=== PATIENT | male | born 1940 | race Caucasian/White ===

== ENCOUNTER 2020-08-23 15:10 | Outpatient (CLI) | payer MEDICARE | END 2020-08-23 15:11 | disposition home or self-care (01) | LOC: CSHRAD 15:10 | PROVIDERS: ATTEND Family Medicine Sports Medicine | DX: R55 Syncope and collapse (principal); S22.41XA Multiple fractures of ribs, right side, initial encounter for closed fracture ==

== ENCOUNTER 2021-06-10 16:14 | Emergency (ER) | payer MEDICARE | END 2021-06-10 17:57 | disposition home or self-care (01) | LOC: CSHERS 16:14 | DX: S00.81XA Abrasion of other part of head, initial encounter (principal); I10 Essential (primary) hypertension; E78.5 Hyperlipidemia, unspecified; K21.9 Gastro-esophageal reflux disease without esophagitis; I25.10 Atherosclerotic heart disease of native coronary artery without angina pectoris; E05.90 Thyrotoxicosis, unspecified without thyrotoxic crisis or storm; Z87.891 Personal history of nicotine dependence; W18.09XA Striking against other object with subsequent fall, initial encounter | CPT/HCPCS: 70450 ==

== ENCOUNTER 2022-03-10 12:22 | Outpatient (CLI) | payer MEDICARE | END 2022-03-10 12:23 | disposition home or self-care (01) | LOC: CSHMRI 12:22 | PROVIDERS: ATTEND Electrodiagnostic Medicine | DX: M21.372 Foot drop, left foot (principal) | CPT/HCPCS: 70551 ==

== ENCOUNTER 2025-02-10 14:07 | Inpatient (IN) | payer MEDICARE, OTHER ==
[~2025-02-10 14:07] MED LIST: Iopamidol 370 76% 100 ML VIAL ONE
[2025-02-10] MEDS ORDERED: Magnesium 2 GM/50 ML BAG (IN WATER) ONE (15:19)
[2025-02-10 15:45] LABS: #Basophils 0.05 10x3/uL (0.0-0.2); #Eosinophils Less than 0.03 10x3/uL (0.0-0.5); #Monocytes 1.50 10x3/uL (0.0-1.1); #Neutrophils 9.09 10x3/uL (1.5-8.4); %Basophils 0.4 % (0.0-2.0); %Eosinophils 0.2 % (0.0-6.0); %Lymphocytes 8.0 % (18.0-47.0); %Monocytes 12.9 % (0.0-10.0); %Neutrophils 78.2 % (40.0-75.0); Hematocrit 36.5 % (38.8-50.0); Hemoglobin 11.9 g/dL (13.5-17.5); Mean Corpuscular Hemoglobin 30.3 pg (27.0-33.0); Mean Corpuscular Volume 92.9 fL (81.2-95.1); Platelet Count 164 10x3/uL (150-450); Red Blood Cell (RBC) Count 3.93 10x6/uL (4.32-5.72); White Blood Cell (WBC) Count 11.63 10x3/uL (3.5-10.5)
[2025-02-10 16:07] LABS: ALT (SGPT) 24 U/L (Less than 45); AST (SGOT) 36 U/L (11-34); Albumin 4.0 g/dL (3.1-4.5); Alkaline Phosphatase 66 U/L (40-110); Anion Gap 17 mmol/L (10-20); BUN (Urea Nitrogen) 14 mg/dL (8.4-25.7); Bilirubin, Total 0.5 mg/dL (0.3-1.2); Calc. Creatinine Clearance 0 mL/min (70-130); Calcium 8.6 mg/dL (7.8-10.44); Carbon Dioxide 20 mmol/L (23-31); Chloride 105 mmol/L (98-107); Globulin 3.0 g/dL (2.4-3.5); Glucose 114 mg/dL (83-110); Potassium 4.0 mmol/L (3.5-5.1); Sodium 138 mmol/L (136-145)
[2025-02-10 16:17] LABS: Troponin I 0.018 ng/mL (< 0.028)
[2025-02-10] MEDS ORDERED: Azithromycin 250 MG TAB ONE (16:32)
[2025-02-10] MEDS ORDERED: cefTRIAXone (ROCEPHIN) 2 GM VIAL ONE (16:32)
[2025-02-10 17:06] LABS: Glucose, Urine (Dipstick) Normal (Negative); Leukocyte Negative (Negative); Protein, Urine (Dipstick) 30 mg/dl (Neg-Trace); Specific Gravity, Urine 1.025 (1.005-1.030)
[2025-02-10 17:23] LABS: CAUTI Indications for Culture Pelvic or flank pain; RBC/HPF 0-3 HPF (0-3); WBC/HPF 0-3 HPF (0-3)
[2025-02-10 17:24] LABS: Bacteria/HPF 2+ HPF (None Seen); Mucous/LPF 4+ LPF (<2+)
[2025-02-10 17:26] LABS: Urine Culture Reflex No No
[2025-02-10] MEDS ORDERED: Ipratropium Bromide 2.5 ml Neb ONE (17:33)
[2025-02-10] MEDS ORDERED: Acetaminophen 325 MG TAB PO PRN (19:45)
[2025-02-10] MEDS ORDERED: Guaifenesin DM 100-10/5 ML UDCUP PO PRN (19:48)
[2025-02-10] MEDS ORDERED: Metoclopramide HCl 10 MG (2 mL) VIAL ONE (20:01)
[2025-02-10] MEDS ORDERED: Acetaminophen 500 MG TAB ONE (20:02)
[2025-02-10 20:17] LABS: Magnesium 1.8 mg/dL (1.6-2.6)
[2025-02-10] MEDS ORDERED: Primidone 50 MG TAB PO SCH (21:00)
[2025-02-10] MEDS ORDERED: Aspirin 81 mg Enteric Coated Tablet PO SCH (21:00)
[2025-02-10 22:23] VITALS: BMI 24.3
[2025-02-10] MEDS: Primidone 50 MG TAB PO SCH (23:17)
[2025-02-10] MEDS: Mupirocin 1 GM TUBE TP SCH (23:18)
[2025-02-11 04:13] LABS: #Basophils Less than 0.03 10x3/uL (0.0-0.2); #Eosinophils 0.13 10x3/uL (0.0-0.5); #Monocytes 1.27 10x3/uL (0.0-1.1); #Neutrophils 6.50 10x3/uL (1.5-8.4); %Basophils 0.1 % (0.0-2.0); %Eosinophils 1.5 % (0.0-6.0); %Lymphocytes 9.0 % (18.0-47.0); %Monocytes 14.6 % (0.0-10.0); %Neutrophils 74.7 % (40.0-75.0); Hematocrit 33.1 % (38.8-50.0); Hemoglobin 11.1 g/dL (13.5-17.5); Mean Corpuscular Hemoglobin 31.0 pg (27.0-33.0); Mean Corpuscular Volume 92.5 fL (81.2-95.1); Platelet Count 149 10x3/uL (150-450); Red Blood Cell (RBC) Count 3.58 10x6/uL (4.32-5.72); White Blood Cell (WBC) Count 8.70 10x3/uL (3.5-10.5)
[2025-02-11 04:17] LABS: Anion Gap 11 mmol/L (10-20); BUN (Urea Nitrogen) 16 mg/dL (8.4-25.7); Calc. Creatinine Clearance 78 mL/min (70-130); Calcium 8.8 mg/dL (7.8-10.44); Carbon Dioxide 23 mmol/L (23-31); Chloride 106 mmol/L (98-107); Glucose 147 mg/dL (83-110); Potassium 4.2 mmol/L (3.5-5.1); Sodium 136 mmol/L (136-145)
[2025-02-11 04:33] LABS: Legionella Urinary Ag Negative (Negative); Strep pneumo Urine Ag NEGATIVE (NEGATIVE)
[2025-02-11] MEDS: Magnesium Sulfate/D5W 1 GM/100 ML BAG IVPB SCH (05:31)
[2025-02-11] MEDS: Enoxaparin 80 MG (0.8 mL) SYRINGE SC SCH (06:18)
[2025-02-11] MEDS: Primidone 50 MG TAB PO SCH (08:44)
[2025-02-11] MEDS: Pantoprazole 40 MG DR.TAB PO SCH (08:45)
[2025-02-11] MEDS: Azithromycin 500 MG in Sodium Chloride 0.9% 250 ML 250 ML IVPB SCH (08:45)
[2025-02-11] MEDS: Furosemide 20 MG (2 mL) VIAL SLOW IVP SCH (08:45)
[2025-02-11] MEDS: Multivitamin W/ Minerals 1 TAB PO SCH (08:45)
[2025-02-11] MEDS: Metoprolol Succinate XL 25 MG ER.TAB PO SCH (08:45)
[2025-02-11] MEDS: Cholecalciferol 1,000 UNITS (25 MCG) TAB PO SCH (08:46)
[2025-02-11] MEDS: Mupirocin 1 GM TUBE TP SCH (08:46)
[2025-02-11] MEDS ORDERED: Enoxaparin 40 MG (0.4 mL) SYRINGE SC SCH (09:00)
[2025-02-11 12:39] LABS: INR-International Normal Ratio 1.0; PTT 32.3 sec (22.0-33.0); Prothrombin Time 10.7 sec (9.5-12.1)
[2025-02-11] MEDS: cefTRIAXone\\ROCEPHIN 2 GM in Sodium Chloride 0.9% 100 ML IVPB SCH (16:30)
[2025-02-11 17:52] LABS: T4 4.36 ug/dL (4.87-11.72)
[2025-02-12 03:32] LABS: #Basophils 0.04 10x3/uL (0.0-0.2); #Eosinophils 0.03 10x3/uL (0.0-0.5); #Monocytes 1.06 10x3/uL (0.0-1.1); #Neutrophils 6.71 10x3/uL (1.5-8.4); %Basophils 0.5 % (0.0-2.0); %Eosinophils 0.3 % (0.0-6.0); %Lymphocytes 10.8 % (18.0-47.0); %Monocytes 12.0 % (0.0-10.0); %Neutrophils 75.8 % (40.0-75.0); Hematocrit 30.5 % (38.8-50.0); Hemoglobin 10.2 g/dL (13.5-17.5); Mean Corpuscular Hemoglobin 30.8 pg (27.0-33.0); Mean Corpuscular Volume 92.1 fL (81.2-95.1); Platelet Count 139 10x3/uL (150-450); Red Blood Cell (RBC) Count 3.31 10x6/uL (4.32-5.72); White Blood Cell (WBC) Count 8.85 10x3/uL (3.5-10.5)
[2025-02-12 03:46] LABS: Anion Gap 11 mmol/L (10-20); BUN (Urea Nitrogen) 21 mg/dL (8.4-25.7); Calc. Creatinine Clearance 86 mL/min (70-130); Calcium 8.7 mg/dL (7.8-10.44); Carbon Dioxide 23 mmol/L (23-31); Chloride 107 mmol/L (98-107); Glucose 109 mg/dL (83-110); Magnesium 2.2 mg/dL (1.6-2.6); Potassium 3.6 mmol/L (3.5-5.1); Sodium 137 mmol/L (136-145)
[2025-02-12] MEDS: Aspirin Chewable 81 MG TAB PO SCH (09:29)
[2025-02-12] MEDS: Enoxaparin 40 MG (0.4 mL) SYRINGE SC SCH (09:30)
[2025-02-12] MEDS: Metoprolol Succinate XL 50 MG ER.TAB PO SCH (09:30)
[2025-02-12] MEDS: Potassium Bicarbonate/Cit Ac 20 MEQ TAB PO SCH (10:47)
[2025-02-12 13:40] LABS: Actual Bicarbonate (HCO3v) 21.1 mEq/L (22-28); Analyzer IN Cardio CS ICU; Base Excess -3.8 mEq/L (-2 - +2); Calcium, Ionized (venous) 1.06 mmol/L (1.16-1.32); Chloride (VBG) 106 mmol/L (98-106); Hematocrit-VBG 29 % (42.0-52.0); Hemoglobin (Hb) 10.0 g/dL (12.6-17.4); Potassium (VBG) 3.04 mmol/L (3.70-5.30); Puncture Site Other Site; Sodium 137 mmol/L (133-146)
[2025-02-12] MEDS: Acetaminophen 325 MG TAB PO PRN (14:11)
[2025-02-13 03:44] LABS: #Basophils 0.05 10x3/uL (0.0-0.2); #Eosinophils 0.08 10x3/uL (0.0-0.5); #Monocytes 1.04 10x3/uL (0.0-1.1); #Neutrophils 8.97 10x3/uL (1.5-8.4); %Basophils 0.4 % (0.0-2.0); %Eosinophils 0.7 % (0.0-6.0); %Lymphocytes 8.5 % (18.0-47.0); %Monocytes 9.3 % (0.0-10.0); %Neutrophils 79.9 % (40.0-75.0); Hematocrit 28.9 % (38.8-50.0); Hemoglobin 9.7 g/dL (13.5-17.5); Mean Corpuscular Hemoglobin 30.6 pg (27.0-33.0); Mean Corpuscular Volume 91.2 fL (81.2-95.1); Platelet Count 184 10x3/uL (150-450); Red Blood Cell (RBC) Count 3.17 10x6/uL (4.32-5.72); White Blood Cell (WBC) Count 11.23 10x3/uL (3.5-10.5)
[2025-02-13 03:57] LABS: Anion Gap 13 mmol/L (10-20); BUN (Urea Nitrogen) 20 mg/dL (8.4-25.7); Calc. Creatinine Clearance 95 mL/min (70-130); Calcium 8.4 mg/dL (7.8-10.44); Carbon Dioxide 22 mmol/L (23-31); Chloride 107 mmol/L (98-107); Glucose 106 mg/dL (83-110); Potassium 3.1 mmol/L (3.5-5.1); Sodium 139 mmol/L (136-145)
[2025-02-13] MEDS: Potassium Bicarbonate/Cit Ac 20 MEQ TAB PO SCH (10:44)
[2025-02-13] MEDS: Furosemide 40 MG (4 mL) VIAL SLOW IVP SCH (11:49)
[2025-02-13] MEDS: Melatonin 3 MG TAB PO SCH (20:11)
[2025-02-13] MEDS: Benzonatate 100 MG CAP PO PRN (20:12)
[2025-02-14 04:08] LABS: #Basophils 0.11 10x3/uL (0.0-0.2); #Eosinophils 0.14 10x3/uL (0.0-0.5); #Monocytes 1.27 10x3/uL (0.0-1.1); #Neutrophils 12.05 10x3/uL (1.5-8.4); %Basophils 0.7 % (0.0-2.0); %Eosinophils 0.9 % (0.0-6.0); %Lymphocytes 7.8 % (18.0-47.0); %Monocytes 8.4 % (0.0-10.0); %Neutrophils 80.1 % (40.0-75.0); Hematocrit 32.5 % (38.8-50.0); Hemoglobin 10.8 g/dL (13.5-17.5); Mean Corpuscular Hemoglobin 30.3 pg (27.0-33.0); Mean Corpuscular Volume 91.3 fL (81.2-95.1); Platelet Count 248 10x3/uL (150-450); Red Blood Cell (RBC) Count 3.56 10x6/uL (4.32-5.72); White Blood Cell (WBC) Count 15.06 10x3/uL (3.5-10.5)
[2025-02-14 04:23] LABS: Anion Gap 14 mmol/L (10-20); BUN (Urea Nitrogen) 19 mg/dL (8.4-25.7); Calc. Creatinine Clearance 94 mL/min (70-130); Calcium 9.2 mg/dL (7.8-10.44); Carbon Dioxide 25 mmol/L (23-31); Chloride 102 mmol/L (98-107); Glucose 105 mg/dL (83-110); Potassium 3.3 mmol/L (3.5-5.1); Sodium 138 mmol/L (136-145)
[2025-02-14] MEDS ORDERED: Potassium Bicarbonate/Cit Ac 20 MEQ TAB PO SCH (08:45)
[2025-02-14 18:02] LABS: Potassium 3.6 mmol/L (3.5-5.1)
[2025-02-14] MEDS: Melatonin 3 MG TAB PO PRN (20:30)
[2025-02-15 03:58] LABS: #Basophils 0.11 10x3/uL (0.0-0.2); #Eosinophils 0.29 10x3/uL (0.0-0.5); #Monocytes 1.20 10x3/uL (0.0-1.1); #Neutrophils 11.26 10x3/uL (1.5-8.4); %Basophils 0.7 % (0.0-2.0); %Eosinophils 2.0 % (0.0-6.0); %Lymphocytes 8.2 % (18.0-47.0); %Monocytes 8.2 % (0.0-10.0); %Neutrophils 76.6 % (40.0-75.0); Hematocrit 30.8 % (38.8-50.0); Hemoglobin 10.3 g/dL (13.5-17.5); Mean Corpuscular Hemoglobin 30.7 pg (27.0-33.0); Mean Corpuscular Volume 91.7 fL (81.2-95.1); Platelet Count 230 10x3/uL (150-450); Red Blood Cell (RBC) Count 3.36 10x6/uL (4.32-5.72); White Blood Cell (WBC) Count 14.69 10x3/uL (3.5-10.5)
[2025-02-15 04:14] LABS: Anion Gap 13 mmol/L (10-20); BUN (Urea Nitrogen) 15 mg/dL (8.4-25.7); Calc. Creatinine Clearance 103 mL/min (70-130); Calcium 8.7 mg/dL (7.8-10.44); Carbon Dioxide 24 mmol/L (23-31); Chloride 102 mmol/L (98-107); Glucose 115 mg/dL (83-110); Potassium 3.6 mmol/L (3.5-5.1); Sodium 135 mmol/L (136-145)
[2025-02-15] MEDS: predniSONE 20 MG TAB PO SCH (12:20)
[2025-02-15] MEDS: guaiFENesin/DM ER PO SCH ×2 (12:20→20:21)
[2025-02-15] MEDS: Mometasone 200 MCG/Formoterol 5 MCG 60 PUFF INHALER INH SCH ×2 (14:10→20:20)
[2025-02-15] MEDS: Mometasone 200 MCG/Formoterol 5 MCG 120 PUFF INHALER INH SCH (16:09)
[2025-02-16 03:50] LABS: Anion Gap 14 mmol/L (10-20); BUN (Urea Nitrogen) 12 mg/dL (8.4-25.7); Calc. Creatinine Clearance 99 mL/min (70-130); Calcium 8.6 mg/dL (7.8-10.44); Carbon Dioxide 24 mmol/L (23-31); Chloride 103 mmol/L (98-107); Glucose 108 mg/dL (83-110); Potassium 4.1 mmol/L (3.5-5.1); Sodium 137 mmol/L (136-145)
[2025-02-16 03:57] LABS: Hematocrit 32.8 % (38.8-50.0); Hemoglobin 11.1 g/dL (13.5-17.5); Mean Corpuscular Hemoglobin 31.1 pg (27.0-33.0); Mean Corpuscular Volume 91.9 fL (81.2-95.1); Platelet Count 277 10x3/uL (150-450); Red Blood Cell (RBC) Count 3.57 10x6/uL (4.32-5.72); White Blood Cell (WBC) Count 12.67 10x3/uL (3.5-10.5)
[2025-02-16 04:04] LABS: Anisocytosis SLIGHT = 6-15 cells (100X) (0-5/hpf); MDiff Complete? YES; Macrocytosis SLIGHT = 6-15 cells (100X) (0-5/hpf); Platelet Adequacy Comment Appears Adequate; Polychromasia SLIGHT = 2-3 cells (100X) (0-2/hpf)
[2025-02-16] MEDS: predniSONE 20 MG TAB PO SCH (07:53)
[2025-02-17 03:24] LABS: Hematocrit 34.0 % (38.8-50.0); Hemoglobin 11.3 g/dL (13.5-17.5); Mean Corpuscular Hemoglobin 30.5 pg (27.0-33.0); Mean Corpuscular Volume 91.9 fL (81.2-95.1); Platelet Count 307 10x3/uL (150-450); Red Blood Cell (RBC) Count 3.70 10x6/uL (4.32-5.72); White Blood Cell (WBC) Count 12.59 10x3/uL (3.5-10.5)
[2025-02-17 03:51] LABS: Anion Gap 14 mmol/L (10-20); BUN (Urea Nitrogen) 12 mg/dL (8.4-25.7); Calc. Creatinine Clearance 94 mL/min (70-130); Calcium 8.6 mg/dL (7.8-10.44); Carbon Dioxide 24 mmol/L (23-31); Chloride 103 mmol/L (98-107); Glucose 107 mg/dL (83-110); Magnesium 1.8 mg/dL (1.6-2.6); Potassium 3.2 mmol/L (3.5-5.1); Sodium 138 mmol/L (136-145)
[2025-02-17 03:56] LABS: MDiff Complete? YES; Platelet Adequacy Comment Appears Adequate; Poikilocytosis SLIGHT = 6-15 cells (100X) (0-5/hpf); Stomatocytes SLIGHT = 2-5 cells (100X) (0-1/hpf)
[2025-02-17] MEDS ORDERED: Magnesium 2 GM/50 ML(in water) 2 GM in Premix 1 BAG IVPB PRN (08:45)
[2025-02-17] MEDS ORDERED: PHOS-NAK 1 PKT PACK PO PRN (08:45)
[2025-02-17] MEDS ORDERED: Potassium Chloride 20 MEQ in Premix 1 BAG IVPB PRN (08:45)
[2025-02-17] MEDS: Metoprolol Succinate XL 50 MG ER.TAB PO SCH (10:30)
[2025-02-17 14:15] VITALS: BMI 24.8
[2025-02-17 15:05] LABS: Potassium 3.9 mmol/L (3.5-5.1)
[2025-02-18] MEDS: Metoprolol Succinate XL 100 MG ER.TAB PO SCH (09:04)
[2025-02-18 09:49] VITALS: BP 151/91; TEMP 98.5
== END 2025-02-18 12:00 | disposition home or self-care (01) | DRG 871 ==
LOC: CSHERS 14:07 → CSHICU 19:01
PROVIDERS: ADMIT Family Medicine; ATTEND Internal Medicine
PROC: 3E03329 Introduction of Other Anti-infective into Peripheral Vein, Percutaneous Approach (ICD-10-PCS; principal; 2025-02-10)
PROC: 5A0945A Assistance with Respiratory Ventilation, 24-96 Consecutive Hours, High Flow/Velocity Cannula (ICD-10-PCS; 2025-02-10)
DX: A41.9 Sepsis, unspecified organism (principal); J18.9 Pneumonia, unspecified organism; J96.01 Acute respiratory failure with hypoxia; I47.20 Ventricular tachycardia, unspecified; E87.20 Acidosis, unspecified; I49.3 Ventricular premature depolarization; R65.20 Severe sepsis without septic shock; E78.5 Hyperlipidemia, unspecified; I10 Essential (primary) hypertension; K21.9 Gastro-esophageal reflux disease without esophagitis; I25.10 Atherosclerotic heart disease of native coronary artery without angina pectoris; M19.90 Unspecified osteoarthritis, unspecified site; E03.9 Hypothyroidism, unspecified; I49.1 Atrial premature depolarization; I73.9 Peripheral vascular disease, unspecified; D63.8 Anemia in other chronic diseases classified elsewhere; G20.A1 Parkinson's disease without dyskinesia, without mention of fluctuations; I48.0 Paroxysmal atrial fibrillation; E05.90 Thyrotoxicosis, unspecified without thyrotoxic crisis or storm; A49.2 Hemophilus influenzae infection, unspecified site; J44.9 Chronic obstructive pulmonary disease, unspecified; Z98.890 Other specified postprocedural states; Z95.1 Presence of aortocoronary bypass graft; Z87.891 Personal history of nicotine dependence; Z95.828 Presence of other vascular implants and grafts; Z79.899 Other long term (current) drug therapy; Z85.038 Personal history of other malignant neoplasm of large intestine; Z90.49 Acquired absence of other specified parts of digestive tract; Z79.82 Long term (current) use of aspirin
CPT/HCPCS: 36415; 71045; 71275; 80048; 80053; 81001; 82805; 83605; 83735; 83880; 84145; 84436; 84443; 84481; 84484; 85025; 85610; 85730; 87040; 87070; 87077; 87205; 87428; 87449; 87899; 93005; 93010; 93306; 94640; 94664; 94760; 94762; 96374; 96375; J0456; J0696; J1650; J1940; J2765; J2919; J3475; J7030; J7050; J7120; J7512; J7644; Q9967